=== PATIENT | male | born 1965 | race Caucasian/White ===

== ENCOUNTER 2017-06-19 07:15 | Observation (INO) | payer OTHER ==
[2017-06-20] MEDS ORDERED: TRANEXAMIC ACID IV ONE (06:00)
[2017-06-20] MEDS ORDERED: ROPIVACAINE 0.2% 80 MG, EPINEPHrine 0.2 MG, KETOROLAC TROMETHAMINE 30 MG in SYRINGE 0 ML IU ONE (06:00)
[2017-06-20] MEDS ORDERED: NS IV ONE (06:00)
[2017-06-20] MEDS ORDERED: BUPI/epINEPH/KETOROLAC IU ONE (06:00)
[2017-06-20] MEDS ORDERED: ONDANSETRON 4 MG/2 ML VIAL IVP ONE (06:08)
[2017-06-20] MEDS ORDERED: FAMOTIDINE 20 MG TAB PO ONE (06:08)
[2017-06-20] MEDS ORDERED: HYDROCODONE/APAP 10/325 TAB PO ONE (06:08)
[2017-06-20] MEDS ORDERED: GABAPENTIN 300 MG CAP PO ONE (06:08)
[2017-06-20] MEDS ORDERED: ceFAZolin 2 GM/SWFI 2 GM/20 ML SYR IVP ONE (06:08)
[2017-06-20] MEDS ORDERED: LR 1,000 ML IV ONE (06:13)
[2017-06-20] MEDS ORDERED: DEXAMETHASONE 4 MG/ML VIAL IVP PRN (07:00)
[2017-06-20] MEDS ORDERED: HYDROCODONE/APAP 5/325 TAB PO PRN (07:00)
[2017-06-20] MEDS ORDERED: ONDANSETRON 4 MG/2 ML VIAL IVP PRN ×2 (07:00→09:05)
[2017-06-20] MEDS ORDERED: NALOXONE HCL 0.4 MG/ML INJ IVP PRN (07:00)
[2017-06-20] MEDS ORDERED: ALBUTEROL 3 ML DEYVIAL IH PRN (07:00)
[2017-06-20] MEDS ORDERED: MIDAZOLAM 2 MG/2 ML VIAL IVP ONE (07:00)
[2017-06-20] MEDS ORDERED: HYDROmorphONE/DILAUDID 1 MG/ML INJ IVP PRN (07:00)
--- NOTE | 2017-06-20 07:01 | PDHPUP ---
History & Physical Update H&P update statement: This history and physical update is based on an assessment of the patient which was completed after admission or registration (within 24 hours), but prior to the surgery/procedure. H&P update: H&P reviewed & patient examined
--- NOTE | 2017-06-20 07:02 | PDANEPAE ---
ANE History of Present Illness R TKA ANE Past Medical History - Cardiovascular History Hx Hypertension: No Hx Arrhythmias: No Hx Chest Pain: No Hx Coronary Artery / Peripheral Vascular Disease: No Hx CHF / Valvular Disease: No Hx Palpitations: No - Pulmonary History Hx COPD: No Hx Asthma/Reactive Airway Disease: No Hx Recent Upper Respiratory Infection: No Hx Oxygen in Use at Home: No Hx Sleep Apnea: No Sleep Apnea Screening Result - Last Documented: Negative - Neurologic History Hx Cerebrovascular Accident: No Hx Seizures: No Hx Dementia: No - Endocrine History Hx Diabetes: No - Renal History Hx Renal Disorders: No - Liver History Hx Hepatic Disorders: No - Neurological & Psychiatric Hx Hx Neurological and Psychiatric Disorders: No - Cancer History Hx Cancer: No - Congenital Disorder History Hx Congenital Disorders: No - GI History Hx Gastrointestinal Disorders: No - Other Health History Other Health History: wears glasses - Chronic Pain History Chronic Pain: Yes (right knee) - Surgical History Prior Surgeries: 3 ACL repairs. 4 knee scopes. c5-6 fusion. c6 debridement ANE Review of Systems Review of Systems: - Exercise capacity METS (RN): 4 METS ANE Patient History - Allergies Allergies/Adverse Reactions: oxycodone [From Percocet] Allergy (Verified 06/05/17 11:57) Hives - Home Medications Home Medications: Acetaminophen [Tylenol 325mg (*)] 325 mg PO DAILY PRN 06/05/17 [Last Taken 3 Days Ago ~06/17/17] Tetrahydrozoline 0.05% [Visine (*)] 1 drop EACHEYE DAILY PRN 06/05/17 [Last Taken 3 Days Ago ~06/17/17] - NPO status NPO Since - Liquids (Date): 06/20/17 NPO Since - Liquids (Time): 05:00 NPO Since - Solids (Date): 06/19/17 NPO Since - Solids (Time): 20:00 - Smoking Hx Smoking Status: Never smoked - Family Anes Hx Family Hx Anesthesia Complications: none ANE Labs/Vital Signs - Vital Signs Blood Pressure: 118/86 Heart Rate: 52 Respiratory Rate: 18 O2 Sat (%): 96 Height: 172.72 cm Weight: 72.575 kg ANE Physical Exam - Airway Neck exam: FROM Mallampati Score: Class 2 Mouth exam: normal dental/mouth exam - Pulmonary Pulmonary: clear to auscultation - Cardiovascular Cardiovascular: regular rate and rhythym - ASA Status ASA Status: I ANE Anesthesia Plan Anesthesia Plan: spinal Regional Anesthesia: adductor canal FNB
[2017-06-20] MEDS ORDERED: ceFAZolin 1 GM/5 ML SYR ONE (07:03)
[2017-06-20] MEDS ORDERED: VANCOMYCIN 1 GM VIAL ONE (07:03)
[2017-06-20] MEDS ORDERED: PROPOFOL 200 MG/20 ML VIAL ONE ×3 (07:06→08:41)
[2017-06-20] MEDS ORDERED: PROPOFOL/EMULSION 500 MG/50 ML BOTTLE IV ONE ×2 (07:06→08:05)
[2017-06-20] MEDS ORDERED: ONDANSETRON 4 MG/2 ML VIAL ONE (07:09)
[2017-06-20] MEDS ORDERED: DEXAMETHASONE 4 MG/ML VIAL ONE (07:09)
[2017-06-20] MEDS ORDERED: LIDOCAINE 2% 5 ML SDV ONE (07:09)
[2017-06-20] MEDS ORDERED: fentaNYL 100 MCG/2 ML INJ ONE ×3 (07:43→09:47)
[2017-06-20] MEDS ORDERED: ROPIVACAINE HCL 150 MG/30 ML INJ ONE (08:45)
[2017-06-20] MEDS ORDERED: RANITIDINE 50 MG/2 ML VIAL ONE (08:51)
[2017-06-20] MEDS ORDERED: METOCLOPRAMIDE 10 MG/2 ML VIAL ONE (08:51)
--- NOTE | 2017-06-20 08:56 | POSTOPPROG ---
Post Op Note Date of Operation: 06/20/17 Surgeon: Carlos Alberto Esteban Drum Drier: Jay Jay Anesthesiologist: Ijeoma Anesthesia: IV Sedation, Spinal Post-op Diagnosis: Right knee severe degenerative arthritis Procedure: Right total knee arthroplasty Inf/Abcess present in the surg proc area at time of surgery?: No EBL: 50-100 (Adductor canal block in PACU)
[2017-06-20] MEDS ORDERED: TETRAHYDROZOLINE 0.05% 15 ML OPHT.BTL EACHEYE PRN (09:04)
[2017-06-20] MEDS ORDERED: TEMAZEPAM 15 MG CAP PO PRN (09:05)
[2017-06-20] MEDS ORDERED: MAGNESIUM HYDROXIDE 30 ML UDCUP PO PRN (09:05)
[2017-06-20] MEDS ORDERED: ONDANSETRON DISINTEGRATING 4 MG TAB PO PRN (09:05)
[2017-06-20] MEDS ORDERED: BISACODYL 10 MG SUPP PR PRN (09:05)
[2017-06-20] MEDS ORDERED: KETOROLAC 30 MG/1 ML SDV IVP PRN (09:05)
[2017-06-20] MEDS ORDERED: diphenhydrAMINE 25 MG CAP PO PRN (09:05)
[2017-06-20] MEDS ORDERED: PROMETHAZINE HCL 25 MG SUPPR PR PRN (09:05)
[2017-06-20] MEDS ORDERED: POLYETHYLENE GLYCOL 3350 17 GM PKT PO PRN (09:05)
[2017-06-20] MEDS ORDERED: LACTULOSE 20 GM/30 ML UDCUP PO PRN (09:05)
[2017-06-20] MEDS ORDERED: PROMETHAZINE HCL 25 MG/ML INJ IVP PRN (09:05)
[2017-06-20] MEDS ORDERED: DIPHENOXYLATE/ATROPINE LOMOTIL 1 TAB PO PRN (09:05)
[2017-06-20] MEDS ORDERED: METOCLOPRAMIDE 10 MG/2 ML VIAL IVP PRN (09:05)
[2017-06-20] MEDS ORDERED: traMADol 50 MG TAB PO PRN (09:05)
[2017-06-20] MEDS ORDERED: NS 500 ML IV PRN (09:05)
[2017-06-20] MEDS ORDERED: LR 1,000 ML IV SCH (09:30)
[2017-06-20] MEDS: fentaNYL 100 MCG/2 ML INJ IVP PRN ×2 (09:48→09:54)
--- NOTE | 2017-06-20 09:49 | GOP ---
[f rep st] OPERATIVE REPORT DATE OF OPERATION: 06/20/2017 SURGEON: Carlos Alberto Esteban MD SECURITY SYSTEM ANALYST: 1. London Ponce ENVELOPE STAMPING MACHINE OPERATOR. 2. Deon Sierra, PAC. ANESTHESIA: A combination of Marcaine and spinal, IV sedation, and adductor canal block. ANESTHESIOLOGIST: Dr. Fawad Raphael DO. PREOPERATIVE DIAGNOSIS: Right knee severe degenerative arthritis. POSTOPERATIVE DIAGNOSIS: Right knee severe degenerative arthritis. PROCEDURE PERFORMED: Right total knee arthroplasty, cemented, Anderson and Nephew Journey II, posterior stabilized. FINDINGS: ESTIMATED BLOOD LOSS: Following deflation of the tourniquet, was about 100 cc. The sponge and needle count were correct on 2 occasions. He was awakened from anesthesia, transferred to his gurney, and taken to PACU in satisfactory conditi on. There were no recognized intraoperative complications. In the PACU, for additional postoperativ e pain control, Dr. Raphael performed an adductor canal block with an indwelling catheter. London Ponce and Anibal Sierra acted as surgical assistants. Their assistance was a medical necess ity for safe completion of the procedure. DESCRIPTION OF PROCEDURE: The patient was given 2 g of preoperative IV vancomycin within 60 minutes of surgery. He also received IV tranexamic acid at a dose of 10 mg/kg. He was placed on the operati ng room table and given spinal anesthesia with Marcaine by Dr. Raphael. He was then placed supine and given IV sedation. A Edgar catheter was not used. He wore a SALUD stocking and SCD on the nonoperativ e leg. A small bolster was placed under the right hip to prevent excessive external rotation of the leg. His right lower extremity was prepped with ChloraPrep from the upper thigh tourniquet to the ti ps of the toes. It was draped free using sterile sheets, stockinette, and Ioban plastic adhesive dra kuhn. The lower leg was wrapped with compressive Coban. The leg was exsanguinated with elevation and a 6-inch compressive wrap, and the pneumatic tourniquet was inflated to 250 mmHg. A [employer] time-out was performed to verify the correct patient identity and the cor rect surgical side and site. The [place] time-out was also performed. The [email or web address] leg holding device was sterilely attached to the operating room table, and used throughout the procedure to help position the knee. A straight midline incision was made centered on the aburto la. Subcutaneous tissues were sharply divided, and hemostasis was obtained using electrocautery. A subcutaneous flap was developed, and the capsule and synovium were opened in a medial parapatellar fa shion. Extensive degenerative changes were present in both the medial and lateral compartments. His medial capsule and periosteum were elevated off the rim of the medial tibial plateau, all the way ar ound to the posteromedial corner. His medial collateral ligament was released enough to balance the medial side of the knee. In order to improve exposure, his patella was prepared first. The original thickness of the patella was measured. Peripheral osteophytes were removed. I cut a flat surface on the back of the patella. It was sized for a 38 mm round resurfacing component. I removed enough bone from the patella such that the remaining bone, plus the thickness of the patellar component, recreated the original thickne ss of the patella. Composite thickness was 23 mm. The intramedullary alignment guide system was used to set up the distal femoral cut. The distal femu r was cut in 5 degrees of valgus. Because of a 5- to 7-degree preoperative flexion contracture, I ma de a +2 mm cut on the distal femur. The sizing jig was used to determine proper femoral sizing. I s hifted the jig anteriorly 1 mm in order to accommodate a size 6 without notching the anterior cortex. The 5-in-1 cutting block was applied, and the anterior and posterior condylar cuts and chamfer cuts were made. The final jig was used to remove the central portion of the distal femur to accommodate the posterior stabilized femoral component. I removed some nonabsorbable sutures which were present in the femur from his previous ACL reconstruction. I was careful to determine proper rotation by ref erencing off Bharath line and other bony landmarks. Each cut was checked for accuracy before and a fter it was made. The femur was sized for a size 6 posterior stabilized component. Next, the tibia was prepared. The proximal tibial cut was made using the extramedullary alignment gu ronald system. The cut was made in a few degrees of posterior slope. I was careful to achieve proper v arus/valgus alignment and proper rotation. The posterior compartment was cleared of meniscal remnant s. Osteophytes were removed from the back of the femoral condyles. I checked the flexion and extens ion gaps, and they were equal, balanced, and rectangular. The tibia was sized for a size 5 component . With the trial components in place, I selected a 10 mm polyethylene posterior stabilized tibial in sert. The knee came to full extension and flexed to 120 degrees. There was no overstuffing in flexi on. The collateral ligaments were stable and balanced in 90 degrees of flexion and full extension. The trial patellar button was applied, and tracking was checked. Tracking was excellent without any digital pressure. 40 mL of the joint anesthetic cocktail were injected into the posterior capsule, the periarticular st ructures, the quadriceps muscle and tendon areas, and the subcutaneous tissues along the skin edges. A second dose of IV tranexamic acid was given at a dose of 10 mg/kg. The surfaces were prepared for cementing. They were carefully cleaned with the pulsating lavage and thoroughly dried. A CarboJet device was used to blow dry the cancellous surfaces. A double batch of high viscosity methylmethacrylate cement with 2 g of powdered vancomycin added was mixed. While it was still in a doughy state, all 3 components were cemented in place. Excess cement was removed befo re it hardened. The 10 mm trial tibial insert was re-tried and was the proper thickness. The actual component was in serted and locked into place. The knee was thoroughly irrigated one final time with a dilute Betadin e solution. The tourniquet was deflated, and the total tourniquet time was 54 minutes. The vastus medialis portion of the extensor mechanism was repaired with several interrupted figure-of -eight #2 FiberWire sutures. The capsule and synovium were closed first with multiple interrupted fi [id number] 0 PDS sutures, followed by a running #2 barbed Ethicon Stratafix PDO suture. Subcutane ous tissues were closed with a running 0 barbed Ethicon Stratafix Monoderm suture. The skin was clos ed with a running 3-0 barbed Ethicon Stratafix Monoderm subcuticular suture. The skin was sealed wit h half-inch Steri-Strips. The wound was covered with a large piece of sterile Mepilex waterproof will ssing and a 6-inch compressive wrap. A long-leg SALUD stocking and SCD were applied, followed by the c ooling device. He wore a stocking and SCD on the opposite leg during the procedure. I used a size 6 cemented Anderson and Nephew Oxinium posterior stabilized femoral component, a size 5 ce mented tibial base plate, a 10 mm posterior stabilized tibial insert, and a 38 mm cemented round all- polyethylene resurfacing patellar component. /[id number]/MODL
[2017-06-20] MEDS: HYDROCODONE/APAP 5/325 TAB PO PRN ×2 (10:37→18:34)
[2017-06-20] MEDS: CYCLOBENZAPRINE 10 MG TAB PO PRN (10:57)
--- NOTE | 2017-06-20 11:15 | POSTANESTH ---
Post Anesthetic Evaluation Cardiovascular Status: Normal, Stable Respiratory Status: Normal, Stable Level of Consciousness/Mental Status: Can Participate in Eval, Alert and Oriented Pain Control: Adequate, Prn Tx Ordered Nausea/Vomiting Control: Adequate, Prn Tx Ordered Complications Possibly Related to Anesthesia: None Noted
[2017-06-20] MEDS: ACETAMINOPHEN 325 MG TAB PO SCH ×2 (13:11→18:33)
[2017-06-20] MEDS ORDERED: ceFAZolin 2 GM/DEXTROSE 100 ML IV SCH (14:00)
[2017-06-20] MEDS: ceFAZolin 2 GM/SWFI 2 GM/20 ML SYR IVP SCH ×2 (15:05→21:52)
[2017-06-20] MEDS: TRANEXAMIC ACID 650 MG TAB PO SCH (18:34)
[2017-06-20] MEDS: SENNOSIDES/DOCUSATE SODIUM TAB PO SCH (21:51)
[2017-06-20] MEDS: ASPIRIN 325 MG TAB PO SCH (21:51)
[2017-06-20] MEDS: FAMOTIDINE 20 MG TAB PO SCH (21:51)
[2017-06-21] MEDS: ACETAMINOPHEN 325 MG TAB PO SCH ×2 (00:48→05:50)
[2017-06-21] MEDS: TRANEXAMIC ACID 650 MG TAB PO SCH ×2 (00:49→08:54)
[2017-06-21 04:34] VITALS: RESP 16
--- NOTE | 2017-06-21 07:19 | SOAPPROG ---
SOAP Progress Note Assessment/Plan: Assessment: Afebrile. Awake and alert. Minimal pain so far. Has walked in anne. H/H is good. Cath X1. Films look good. Plan: PT today. Home later today. 06/21/17 07:17 Objective: Vital Signs Temp Pulse Resp BP Pulse Ox 36.8 C 68 16 94/66 L 96 06/21/17 04:34 06/21/17 04:34 06/21/17 04:34 06/21/17 04:34 06/21/17 04:34 Laboratory Results 06/21/17 04:56 06/20/17 06/21/17 06/22/17 05:59 05:59 05:59 Intake Total 3080 Output Total 3025 Balance 55 ICD10 Worksheet Patient Problems: Problems Problem Status Onset Osteoarthritis of right knee Acute
--- NOTE | 2017-06-21 07:44 | GDS ---
[f rep st] DISCHARGE SUMMARY ADMISSION DIAGNOSIS: Right knee severe degenerative arthritis. DISCHARGE DIAGNOSIS: Right knee severe degenerative arthritis. OPERATION PERFORMED: 06/20/2017, right total knee arthroplasty. POSTOPERATIVE COMPLICATIONS: None. CONDITION ON DISCHARGE: Improved. DESCRIPTION OF HOSPITAL COURSE: The patient was admitted to the hospital on the morning of surgery. His admission CBC was normal. The same day, under a combination of spinal anesthesia with Marcaine, IV sedation, and adductor canal block, he underwent a right total knee arthroplasty. Postoperativel y, he required urinary catheterization 1 time. He was treated with multimodal DVT prophylaxis, inclu ding aspirin. On the first postoperative day, his hemoglobin and hematocrit were 14.2 and 40.8. He was seen by Physical Therapy and made good progress with ambulation, stairs and knee range of motion. By the time of discharge, he was afebrile, and he was walking safely with crutches. DISPOSITION: Patient discharged to his home. Continue SALUD stockings for 1 week. Continue aspirin 3 25 mg p.o. daily for 21 days. Continue Celebrex for 21 days. He has prescription for [place] for pain . He will go to outpatient physical therapy at my office next week. I will see him back in the off ce on 07/02/2017. If there are any problems, he is to call me at the office. He does not have a [facility] doctor. /[id number]/MODL
[2017-06-21] MEDS: HYDROCODONE/APAP 5/325 TAB PO PRN (08:53)
[2017-06-21] MEDS: FAMOTIDINE 20 MG TAB PO SCH (08:54)
[2017-06-21] MEDS: ASPIRIN 325 MG TAB PO SCH (08:54)
[2017-06-21] MEDS: SENNOSIDES/DOCUSATE SODIUM TAB PO SCH (08:54)
[2017-06-21] MEDS: CYCLOBENZAPRINE 10 MG TAB PO PRN (08:55)
--- NOTE | 2017-06-21 09:03 | ASMTLACE ---
LACE Length of stay for Answers: Less than 1 day current admission Acuity / Level of Answers: No Care: Did the patient have an inpatient admission? # of Emergency department Answers: 0 visits in the last 6 months Date Signed: 06/21/2017 09:03 AM Electronically Signed By:Anne Batista RN
--- NOTE | 2017-06-21 09:09 | ASMTCMCOM ---
CM Note CM Note Notes: Sylvia reviewed for discharge planning purposes. Patient 51 year old male s/p right knee surgery medically cleared for discharge to home. Per therapy able to dc Independently with outpatient therapy. No other needs identified. CM available should other needs arise. Date Signed: 06/21/2017 09:08 AM Electronically Signed By:Anne Batista RN
--- NOTE | 2017-06-21 10:47 | POSTANESTH ---
Post Anesthetic Evaluation Cardiovascular Status: Normal, Stable Respiratory Status: Normal, Stable Level of Consciousness/Mental Status: Can Participate in Eval (20cc 0.5% Ropivicane injected in Adductor Catheter, then catheter removed. No Complications), Alert and Oriented Pain Control: Adequate, Prn Tx Ordered Nausea/Vomiting Control: Adequate, Prn Tx Ordered
[2017-06-21] MEDS ORDERED: ROPIVACAINE HCL 150 MG/30 ML INJ ONE (10:59)
[2017-06-21 11:24] VITALS: BP 108/74; PULSE 61; TEMP 97.4; O2SAT 96
== END 2017-06-21 12:23 | disposition home or self-care (01) ==
LOC: F3N 06-20 05:52
PROVIDERS: ADMIT Orthopaedic Surgery; ATTEND Orthopaedic Surgery
PROC: 0SRC0J9 Replacement of Right Knee Joint with Synthetic Substitute, Cemented, Open Approach (ICD-10-PCS; principal; 2017-06-20 07:15)
DX: M17.11 Unilateral primary osteoarthritis, right knee (principal)
CPT/HCPCS: 27447; 73560; 77073; 97116; 97161; 97165; 97530; G0378; C1713; J0171; J0690; J1100; J1885; J2250; J2405; J2704; J2765; J2780; J2795; J3010; J3370